=== PATIENT | female | born 1975 | race Asian ===

== ENCOUNTER 2021-07-06 23:57 | Emergency (ER) | payer OTHER ==
[2021-07-07 00:06] VITALS: TEMP 98.6; BMI 25.2
[2021-07-07] MEDS ORDERED: LORazepam 2 MG TABLET PO ONE (02:00)
[2021-07-07] MEDS ORDERED: LORazepam 0.5 MG TABLET ONE (02:02)
[2021-07-07 02:31] VITALS: BP 145/92; PULSE 95
== END 2021-07-07 02:36 | disposition home or self-care (01) ==
LOC: FER 23:57
DX: F12.90 Cannabis use, unspecified, uncomplicated (principal); F41.9 Anxiety disorder, unspecified
CPT/HCPCS: 71046-TC-FY; 93005; 99284-25